=== PATIENT | female | born 1975 | race Caucasian/White ===

== ENCOUNTER 2017-07-09 19:29 | Emergency (ER) | payer MEDICAID ==
[~2017-07-09] VITALS: Ht 170.2 cm; Wt 53.5 kg
[~2017-07-09 19:29] MED LIST: BACTRIM DS 8001 TAB; CIPRO 500MG TA500 MG PO; HYDROCHLOROTH12.5 M1 PO; IBUPROFEN 600M600 MG PO; KEFLEX 500MG.500 MG PO; NEURONTIN600 M1 PO; NICOTINE PATCH;21 MG TD; PREDNISONE50 MG PO; SUBOXONE 8 MG-21 TAB SL; TESSALON PERLE100 MG PO; ZITHROMAX Z PA250 MG PO
[2017-07-09] MEDS ORDERED: BUPRENORPHINE H1 TA2 SL (19:42)
[2017-07-09 19:57] LABS: URINE BILIRUBIN - DIPSTICK NEGATIVE (NEG); URINE BLOOD 1+ (NEG)
[2017-07-09 20:32] LABS: URINE SQUAMOUS CELLS TNTC #/hpf (0-5)
--- NOTE | 2017-07-09 20:45 | Emergency Room Report ---
History of Present Illness Time Seen by 2003 Presenting Problem in Triage Pt arrived:Walked Presenting Problem:C/O RUQ PAIN FOR YEARS BUT WORSE LAST COUPLE OF WEEKS. ALSO C /O CONSTIPATION FOR A LONG TIME TO POINT SHE HAS TO MAKE HERSELF HAVE BM. UNABLE TO EAT TODAY AND AFTER EATIMNG FEELS BLOATED. 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 N Clinical Suspician of Infection? N Mental Status: 1 - Regular (Normal Baseline) Sepsis Risk:Possible Sepsis Risk Have you (or family members/close friends) recently traveled outside the [place]? N If Yes, where/when: Have you had exposure to infectious disease within the past month? N TB? Other? Specify: Source patient, RN notes reviewed, family, old records Exam Limitations no limitations Comment pt with bloated abd with rt upper abd pain -pt with no fever - no diarrhea Cardiac Chest Pain Chest pain indicative of cardiac No Timing/Duration this evening Severity moderate ALLERGIES Coded Allergies: Penicillins (Mild, 06/19/16) doxycycline (Mild, 06/19/16) levofloxacin (From LEVAQUIN) (Mild, 06/19/16) propoxyphene (Mild, 06/19/16) tetracycline (Mild, 06/19/16) meperidine (From DEMEROL) (07/09/17) Home Medications Reported Medications Gabapentin (Neurontin) 800 MG PO QID BUPRENORPHINE HCL/NALOXONE HCL (Buprenorphin-Naloxon 8-2 MG Sl) 2 TAB SL DAILY #14 History Medical History General CAD? No Angina: No PR: No Hypertension? No Hyperlipidemia? No CHF? No DVT? No PE? No COPD? No Asthma? No Anemia? No GERD? No Gastric ulcers? No GI Bleed? No Hernia? No Thyroid Problems? No Hypothyroidism? No CVA? No Seizures? No Diabetes? No Renal Insuffiency? No End Stage Renal Disease? No UTI? No Stones? No BPH? No GB Disease: No Nephritic Syndrome? No Asplenia? No Hepatitis? No Sickle Cell Disease? No Arthritis? No Migraines? Yes Cataracts? No Glaucoma? No MRSA? No HIV? No TB? No Anxiety? Yes Depression? Yes Cancer? No More? 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 Respiratory denies cough, denies shortness of breath, denies wheezing Cardiovascular denies chest pain, denies palpitations, denies syncope Gastrointestinal denies abdominal pain, denies vomiting Genitourinary denies: dysuria, frequency, hesitancy, hematuria. Musculoskeletal denies back pain, denies joint pain, denies neck pain Skin denies rash Psychiatric/Neurological denies headache, denies seizure Physical Exam Vital Signs Vital Signs Date Time Temp Pulse Resp B/P Pulse O2 O2 Flow FiO2 Ox Delivery Rate 07/09 1933 98.0 95 20 127/76 98 - WBC >12,000 or <4,000 or 10% bands? 2 or more SIRS Criteria Met? B/P:127/76 MAP:93 Creatinine >2.0? UA output<0.5ml/kg/hr for 2 hrs? Platelet count >100,000? Lactate >2.0mmol/1? INR >1.2 or PTT > than 60 sec? Evidence of Organ Dysfunction? Provider documented clinical suspician of infection? N Sepsis Criteria Count: 2 Sepsis Risk: Possible Sepsis Risk General Appearance no apparent distress Eye Exam - bilateral eye PERRL, bilateral eye EOMI Ear, Nose, Throat normal ENT inspection Neck supple Respiratory Status No: respiratory distress. Lung Sounds bilateral: lungs clear. 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 No Results/Orders Laboratory Tests 07/09/172051: Sodium 136, Potassium 3.1 L, Chloride 101, Carbon Dioxide 27, BUN 9, Creatinine 0.5 L, Estimated Creat Clear 128, Estimated GFR (MDRD) 137, Glucose 93, Calcium 8.4 L, Total Bilirubin 0.2, AST 10 L, ALT 8 L, Alkaline Phosphatase 220 H, Total Protein 7.0, Albumin 3.3 L, Globulin 3.7 H, Albumin/Globulin Ratio 0.9 L, Amylase 33, Lipase 283, WBC 5.8, RBC 4.11 L, Hgb 13.2, Hct 40.0, MCV 97.4, RDW 14.5, Plt Count 281, MPV 7.5, Gran % 41.9, Gran # 2.4, Lymphocytes % 48.2, Monocytes % 7.8, Eosinophils % 1.5, Basophils % 0.7, Lymphocytes # 2.8, Monocytes # 0.5, Eosinophils # 0.1, Basophils # 0.0, PUBS MCHC 33.0, MCH 32.1 H 07/09/171945: Opiates Screen NEGATIVE, Urine Methadone Screen NEGATIVE, Barbiturates NEGATIVE, Phencyclidine Screen NEGATIVE, Amphetamines Screen NEGATIVE, Benzodiazepines Screen NEGATIVE, Cocaine Screen NEGATIVE, Marijuana (THC) Screen NEGATIVE, Urine Color YELLOW, Urine Appearance SL CLOUDY, Urine pH 5.5, Ur Specific Grady 1.025, Urine Protein TRACE H, Urine Ketones NEGATIVE, Urine Blood 1+ H, Urine Nitrate NEGATIVE, Urine Bilirubin NEGATIVE, Urine Urobilinogen 0.2, Ur Leukocyte Esterase NEGATIVE, Urine RBC 3-5, Urine WBC OCC, Ur Squamous Epith Cells TNTC, Urine Bacteria 2+, Urine Mucus 1+, Urine Glucose NEGATIVE Current Medication Orders Sig/Flaco Start time Last Medication Dose Route Stop Time Status Admin Sodium Chloride 10 ML PRN PRN 07/09 1945 AC IV 07/10 1944 Orders Procedure Date/time Status DIET-NOTHING BY MOUTH 07/10 B Active DRUG ABUSE SCREEN (TRIAGE) 07/[address] ABD & PELVIS W/O CONTRAST 07/09 1947 Active CULTURE, URINE 07/[address] ABD/PELVIS REQ 07/09 1944 Complete IV SALINE LOCK 07/09 1944 Active URINALYSIS/COMPLETE 07/09 1944 Complete LIPASE 07/09 1944 Complete CBC WITH AUTO DIFF 07/09 1944 Complete CHEM 12 PROFILE 07/09 1944 Complete AMYLASE 07/09 1944 Complete XRAY/CT/US XRAY/CT/US CT abdomen, pelvis CT interpretation by discussed w/radiologist Time results known: 2220 CT Results normal/NAD Departure Departure Time of Disposition 2213 Disposition DC Home or Self Care(routine) Clinical Impression Primary Impression: Abdominal pain Qualifiers: Abdominal location: right upper quadrant Qualified Code: R10.11 - Right upper quadrant pain Condition STABLE Referrals STEVE BLACK APRN (Family) Patient Instructions DI for Abdominal Pain-Adult Additional Instructions see pcp for follow up Discharge Counseling Counseled pt/family regarding diagnosis, test results, medications/RX, follow up needs ED Critical Care Critical Care No at 2220
[2017-07-09 20:56] LABS: HEMOGLOBIN 13.2 g/dL (12.2-16.2); LYMPH # 2.8 K/mm3 (0.7-4.5); LYMPH % 48.2 % (10-50.0)
[2017-07-09 21:07] LABS: AMPHETAMINES/METAMPHETAMINES NEGATIVE ng/mL (<1000)
[2017-07-09 22:27] VITALS: BP 109/77
--- NOTE | 2017-07-10 09:17 | RADIOLOGY REPORT PS360 ---
CT ABD PELVIS W/O CONTRAST CLINICAL INDICATION: RUQ ABD PAIN ORDERING PHYSICIAN: Jim Maldonado MD PATIENT AGE: 41 years COMPARISON: 10/08/2013 TECHNIQUE: Axial images obtained with sagittal and coronal reformats. PROCEDURE: Oral Contrast: None IV Contrast: None . FINDINGS: Lower thorax: No acute finding ABDOMEN: Liver: No masses or biliary dilatation. Gallbladder: Nondistended. No radio opaque stones. Pancreas: No masses or peripancreatic fluid collections. Spleen: Unremarkable. Adrenals: Unremarkable Kidneys/ureters: No masses. No renal calculi. No hydronephrosis. No perinephric fluid collections. No ureteral dilatation or obvious ureteral calculi. Stomach bowel: The bowel gas pattern is nonspecific with scattered nondistended fluid-filled loops of small bowel Appendix: No evidence of appendicitis. PELVIS: Reproductive: Unremarkable Bladder: Nondistended. No obvious stones or masses. ABDOMEN & PELVIS: Peritoneum: No abnormal fluid collections. No obvious inflammatory changes. No free air. Lymph nodes: No enlarged lymph nodes apparent. Vasculature: No evidence of abdominal aortic aneurysm. No retroperitoneal hemorrhage evident. Bones: No acute fracture IMPRESSION: No acute intra-abdominal or pelvic pathology. Nonspecific bowel gas pattern with some nonspecific fluid-filled loops of small bowel in the pelvis. Enteritis is a consideration. Please correlate clinically
--- OUTSIDE RECORDS SUMMARY | 2017-07-10 22:10 | External Medical Summary Rpt | CCD ---
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 Name Role Phone AHMED ADN, AHMED ADN Unavailable Unavailable AHMED ADN, AHMED ADN Unavailable Unavailable BEINEKE LUBNA, BEINEKE Unavailable Unavailable LUBNA ZUNIGA ALL, ZUNIGA ALL Unavailable Unavailable SANCHEZ ROSA, SANCHEZ Unavailable Unavailable [facility] Unavailable Unavailable CLINIC PLL[facility], [facility] KEON RYA, Unavailable Unavailable KE[facility] RYA KEON RYA, Unavailable Unavailable KE[facility] R[facility] ZAFAR HOLLIS, Unavailable Unavailable ZAFAR HOLLIS FRYMAN EUG, FRYMAN Unavailable Unavailable EUG ZELDA DIA, ZELDA Unavailable Unavailable DIA [facility] Unavailable Unavailable INC, [facility], Unavailable Unavailable [facility] WAYNE, WAYNE Unavailable Unavailable WAYNE NAN, WAYNE Unavailable Unavailable NAN NIKITA TAU, NIKITA Unavailable Unavailable TAU [facility] Unavailable Unavailable [facility], [facility] Unavailable Unavailable [facility], [facility] VARMA JM, VARMA Unavailable Unavailable JM VARMA JM, VARMA Unavailable Unavailable JM PATRICE JUNIOR, PATRICE Unavailable Unavailable JUNIOR PATRICEDANIELITO PACHECO, PATRICE Unavailable Unavailable JUNIOR Jim Maldonado MD, Unavailable Unavailable Jim Maldonado MD [facility] Unavailable [facility]available [facility], Unavailable [facility]available [facility] Unavailable Unavailable URGENT TREAT, [facility], Unavailable Unavailable PLLC, [facility], Unavailable Unavailable [facility], Unavailable Unavailable [facility] SOKAN BAB, SOKAN BAB Unavailable Unavailable [facility] Unavailable Unavailable EQUIPME, [facility] Unavailable Unavailable EQUIPME, [facility] JAREDSAMARA CALVO, Unavailable Unavailable JAREDSAMARA CALVO [facility] Unavailable Unavailable [facility], [facility], [facility]available [facility], Unavailable Unavailable [facility] Purpose Continuity of Care Document - 05-09-2012 through 2016 Problems Code Diagnosis DOS Provider Status E018 OTH 04-19-2017 [facility] C REL SOLUTIONS THYROID D/O IN & ALLIED CONDS E538 DEFICIENCY 04-19-2017 [facility] OF OTHER HEALTH SPECIFIED B SOLUTIONS GROUP IN VITAMINS G2581 RESTLESS 04-19-2017 [facility] SYNDROME SOLUTIONS IN 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 E559 VITAMIN D 03-24-2017 [facility] DEFICIENCY HEALTH UNSPECIFIED SOLUTIONS IN K219 GASTRO-ESOP 03-24-2017 [facility] H REFLUX HEALTH DISEASE SOLUTIONS WITHOUT IN ESOPHAGITIS 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 R42 DIZZINESS 03-24-2017 [facility] AND HEALTH GIDDINESS SOLUTIONS IN H9202 OTALGIA 03-22-2017 [facility] LEFT EAR HEALTH SOLUTIONS IN K5900 CONSTIPATIO 11-23-2016 [facility] N HEALTH UNSPECIFIED SOLUTIONS IN J189 PNEUMONIA 11-14-2016 [facility]ICAL EQUIPME R0902 HYPOXEMIA 11-14-2016 [facility] R600 LOCALIZED 06-19-2016 [facility] R609 EDEMA 06-19-2016 [facility] UNSPECIFIED PHYSICIANS, [facility] Z720 TOBACCO USE 06-19-2016 [facility] H6502 ACUTE 04-07-2016 VARMA JM SEROUS OTITIS MEDIA LEFT EAR H7012 CHRONIC 04-07-2016 VARMA JM MASTOIDITIS LEFT EAR K5901 SLOW 10-10-2015 [facility] CONST[facility]IO URGENT N TREAT G73430 PAIN IN 10-10-2015 [facility] RIGHT LEG [facility] URGENT [facility]RE[facility] K00318 PAIN IN 10-10-2015 [facility] LEFT LEG [facility] URGENT TREAT [id number] EPIGASTRIC 10-10-2015 [facility] ABDOMINAL [facility] TENDERNESS URGENT TREAT R110 NAUSEA 10-10-2015 [facility] M6009 INFECTIVE 10-03-2015 [facility] MYOSITIS [facility] MULTIPLE URGENT SITES TREAT 486 PNEUMONIA, 06-14-2015 [facility] 84426 ASTHMA, 06-14-2015 [facility] UNSPECIFIED STATUS 04518 HYPOXEMIA 06-14-2015 [facility] MEDICAL EQUIPME V5869 LONG-TERM 06-13-2015 [facility] (CURRENT) PHYSICIANS USE OF GROUP OTHER MEDICATIONS 7856 ENLARGEMENT 06-12-2015 [facility] LYMPH MEDICAL NODES [facility] 22265 SHORTNESS 06-11-2015 [facility] OF BREATH [facility]ICAL [facility] 7862 COUGH 06-11-2015 [facility] 67315 WHEEZING 06-09-2015 [facility] 52180 OTHER 06-09-2015 [facility] NONSPECIFIC MEDICAL ABNORMAL [facility] ASS FINDING OF LUNG FIELD 2724 OTHER AND 06-05-2015 [facility] UNSPECIFIED [facility] URGENT HYPERLIPIDE TREAT SIMBA 4610 ACUTE 06-05-2015 [facility] MAXILLARY [facility] SINUSITIS URGENT TREAT 12822 OTHER 06-05-2015 [facility] MALAISE AND [facility] FATIGUE URGENT TREAT 2689 UNSPECIFIED 02-21-2015 [facility] VITAMIN D FAMILY DEFICIENCY CLINIC [facility] 15338 RESTLESS 02-21-2015 [facility] [place] SYNDROME URGENT TREAT 63190 ACUTE 02-21-2015 [facility] SEROUS FAMILY OTITIS CLINIC [facility] MEDIA V700 ROUTINE 02-21-2015 [facility] GENERAL [facility] EXAM@HEALTH CARE FACL V770 SCREENING 02-21-2015 [facility] FOR THYROID FAMILY DISORDER CLINIC [facility] V7791 SCREENING 02-21-2015 [facility] FOR LIPOID FAMILY DISORDERS CLINIC [facility] V780 SCREENING 02-21-2015 [facility] FOR IRON FAMILY DEFICIENCY CLINIC [facility] ANEMIA 77679 UNSPECIFIED 12-17-2014 [facility] PACHECO ACUTE NONSUPPURAT LISANDRA OTITIS MEDIA 462 ACUTE 12-17-2014 [facility] PACHECO PHARYNGITIS 7905 OTHER 10-24-2014 [facility] ABNORMAL SERUM ENZYME LEVELS 00522 MIGRAINE 04-23-2014 PATRICE PACHECO UNSP W/O INTRACT W/O STATUS MIGRAINOSUS 7820 DISTURBANCE 03-13-2014 PATRICE PACHECO OF SKIN SENSATION 57605 OTHER 12-14-2013 PATR[facility] PACHECO CHRONIC PAIN 276.8 276.8 10-08-2013 [facility] 789.01 789.01 10-08-2013 [place] ABDOMINAL [facility] PAIN, RIGHT Hospital UPPER QUADRANT V14.0 V14.0 10-08-2013 [facility] HX-PENICILL [facility] IN ALLERGY Hospital V14.8 V14.8 10-08-2013 [facility] ALLERGY NEC Hospital 6827 CELLULITIS 03-24-2013 [facility] EX[facility] TOES 62750 OTHER 03-24-2013 [facility] V4589 OTHER 03-24-2013 [facility] STATUS OTHER 60115 MIGRAINE 03-02-2013 PATRICE PACHECO W/AURA W/O INTRACT W/O STATUS MIGRNOSUS 17746 UNSPECIFIED 02-07-2013 PATRICE PACHECO OTALGIA 81992 MIGRAINE 01-11-2013 PATRICE PACHECO UNSP W/O INTRACTBL W/STATUS MIGRAINOSUS 21299 NAUSEA 01-11-2013 PATR[facility] PACHECO ALONE 7295 PAIN IN 11-15-2012 PATRICE PACHECO SOFT TISSUES OF LIMB 03411 OTHER 10-26-2012 [facility] LUNG NOT ASSOCIAT ELSEWHERE CLASSIFIED 77890 MIGRAINE 10-20-2012 PATRICE PACHECO W/O AURA W/O INTRACT W/O STAT MIGRNOSUS 95212 REGULAR 09-26-2012 [facility] 60286 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-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 28360 CERTAIN 06-23-2012 PATRICE PACHECO ADVERSE EFFECTS [facility] OTHER 6250 DYSPAREUNIA 05-17-2012 AHMED ADN 6253 DYSMENORRHE 05-17-2012 AHMED ADN A 20354 ABDOMINAL 05-17-2012 AHMED ADN PAIN, UNSPECIFIED SITE Allergies, Adverse Reactions, Alerts Type Drug Allergy Adverse Reaction to Substance Substance Reaction Severity Penicillin Unknown Unknown Meperidine Unknown Unknown Tetracycline Unknown Unknown Propoxyphene Unknown Unknown Acetaminophen Unknown Unknown Doxycycline Unknown Unknown Medications Na ND Rx Da Fi Fi Am Da Di Ph RX Ph St me C No te ll ll ou ys ag ar # ys at rm s nt no ma ic us Or Da si cy ia de te s n re d BU 00 09 10 14 7 00 CA Ac TN 05 -0 -1 .0 00 RL ti EN 40 7- 3- 00 00 IS ve OR 18 20 20 78 LE PH 91 17 [address] -N UG AL S OX ON 8- 2 MG SL PO 00 08 09 30 30 00 BA Ac TA 78 -2 -2 .0 00 TH ti SS 15 8- 9- 00 06 ve IU 72 20 20 31 HO M 01 17 17 99 ME CL 0 25 TO WN ER PH 20 AR MA ME CY Q , TA IN BL C. ET GA 69 08 09 12 30 00 CA Ac BA 09 -2 -2 0. 00 RL ti PE 70 2- 2- 00 00 IS ve NT 81 20 20 0 77 LE IN 11 17 [address] 80 UG 0 S MG TA BL ET LE 00 08 09 30 30 00 CA Ac VO 37 -2 -2 .0 00 RL ti TH 81 2- 2- 00 00 IS ve YR 80 20 20 77 LE OX 01 17 [address] Wise UG 25 S MC G TA BL ET LE 00 08 30 30 00 CA Ac VO 37 -2 -2 .0 00 RL ti TH 81 4- 5- 00 00 IS ve YR 80 20 20 77 LE OX 01 17 17 [address] Wise UG 25 S MC G TA BL ET GA 69 07 08 12 30 00 CA Ac BA 09 -2 -2 0. 00 RL ti PE 70 4- 5- 00 00 IS ve NT 81 20 20 0 77 LE IN 11 17 17 82 2 49 80 UG 0 S MG TA BL ET OM 60 06 07 30 30 00 CA Ac EP 50 -2 -2 .0 00 RL ti RA 50 6- 8- 00 00 IS ve ZO 06 20 20 77 LE LE 50 17 [address] MCKEON S 20 MG CA PS UL E ON 65 06 07 20 5 00 CA Ac DA 86 -2 -2 .0 00 RL ti NS 20 6- 8- 00 00 IS ve ET 18 20 20 77 LE RO 73 17 [address] HALL UG L S 4 MG TA BL ET GA 69 06 07 12 30 00 CA Ac BA 09 -2 -2 0. 00 RL ti PE 70 6- 8- 00 00 IS ve NT 81 20 20 0 77 LE IN 11 17 17 69 2 95 80 UG 0 S MG TA BL ET TN 59 06 07 55 10 00 CA Ac ED 74 -2 -2 .0 00 RL ti NI 60 6- 8- 00 00 IS ve SO 17 20 20 77 LE NE 21 17 17 69 5 0 96 UG MG S TA BL ET GA 68 05 06 12 30 00 CA Ac BA 46 -2 -3 0. 00 RL ti PE 20 9- 0- 00 00 IS ve NT 12 20 20 0 76 LE IN 70 17 [address] 80 UG 0 S MG TA BL ET GA 68 05 06 12 30 00 CA Ac BA 46 -0 -0 0. 00 RL ti PE 20 1- 2- 00 00 IS ve NT 12 20 20 0 76 LE IN 70 17 [address] 80 UG 0 S MG TA BL ET GA 68 04 05 12 30 00 CA Ac BA 46 -0 -0 0. 00 RL ti PE 20 3- 5- 00 00 IS ve NT 12 20 20 0 76 LE IN 70 17 [address] 80 UG 0 S MG TA BL ET TN 00 03 04 55 10 00 CA Ac ED 05 -0 -1 .0 00 RL ti NI 44 9- 4- 00 00 IS ve SO 72 20 20 77 LE NE 83 17 17 [address] UG MG S TA BL ET GA 02 03 12 30 00 CA Ac BA 46 -2 -3 0. 00 RL ti PE 20 8- 1- 00 00 IS ve NT 12 20 20 0 77 LE IN 60 17 [address] 60 UG 0 S MG TA BL ET PO 51 02 03 52 30 00 CA Ac LY 99 -2 -3 7. 00 RL ti ET 10 8- 1- 00 00 IS ve HY 45 20 20 0 77 LE LE 75 17 [address] UG GL S YC OL 33 50 PO WD GA 68 02 03 12 30 00 CA Ac BA 46 -1 -2 0. 00 RL ti PE 20 7- 4- 00 00 IS ve NT 12 20 20 0 76 LE IN 70 17 [address] 80 UG 0 S MG TA BL ET GA 01 02 12 30 00 CA Ac BA 46 -2 -2 0. 00 RL ti PE 20 0- 4- 00 00 IS ve NT 12 20 20 0 76 LE IN 70 17 [address] 80 UG 0 S MG TA BL ET GA 68 12 01 12 30 00 CA Ac BA 46 -2 -2 0. 00 RL ti PE 20 3- 7- 00 00 IS ve NT 12 20 20 0 76 LE IN 70 16 [address] 80 UG 0 S MG TA BL ET AM 65 12 01 20 10 00 CA Ac OX 86 -2 -2 .0 00 RL ti IC 20 1- 0- 00 00 IS ve IL 01 20 20 76 LE LI 50 16 17 [address] 87 UG 5 S MG TA BL ET TN 00 12 01 11 6 00 CA Ac OM 60 -2 -2 8. 00 RL ti ET 31 1- 0- 00 00 IS ve CRUM 58 20 20 0 76 LE ZI 65 16 [address] -D UG M S SY RU P Sa 63 01 0 No li 80 -1 ne 70 2- Lo 10 20 ng Fl 07 14 er us 5 h Ac 10 ti ML ve Sy ri ng e ON 00 01 0 No DA 64 -1 NS 16 2- Lo ET 08 20 ng RO 02 14 er N 5 HC Ac L ti 4 ve MG /2 ML AL BU 55 01 0 No TO 39 -1 RP 00 2- Lo CRUM 18 20 ng NO 40 14 er L 1 2 Ac MG ti /M ve L AL Po 00 01 0 No ta 24 -1 ss 50 2- Lo iu 04 20 ng m 10 14 er Ch 1 lo Ac ri ti de ve 10 ME Q TA BL E KE 00 01 0 No TO 40 -1 RO 93 2- Lo LA 79 20 ng C 50 14 er 30 1 Ac MG ti /M ve L AL Vital Signs 10-08-2013 20:30 Name Value Interpretat Reference Comment ion Range BP 70 mm[Hg] Diastolic BP Systolic 120 mm[Hg] Heart 77 /min Rate/Pulse O2% 98 % Respiratory 20 /min Rate 10-08-2013 18:56 Name Value Interpretat Reference Comment ion Range BP 79 mm[Hg] Diastolic BP Systolic 139 mm[Hg] Heart 80 /min Rate/Pulse O2% 100 % Respiratory 20 /min Rate Results Labs Lab Lab Date Result Refere Interp Status Commen Order Detail nces retati t Range on COMPREHENSIVE METABOLIC PANEL (10-08-2013 18:50) Glucose 137 74-106 complet 014 mg/dL ed Bld-mCn 18:50 c BUN 10 7-18 complet Bld-mCn 014 mg/dL ed c 18:50 Creat 0.7 0.6-1.0 complet SerPl-m 014 mg/dL ed Cnc 18:50 Creat 101 50-200 complet Cl 014 ML/MIN ed predict 18:50 ed SerPl C-G-vRa te GFR/BSA 95 59- complet .pred 014 ML/MIN ed SerPl 18:50 Schwart z-vRate Sodium 138 136-145 complet SerPl-s 014 mmoL/L ed Cnc 18:50 Potassi 2.9 3.5-5.1 Low complet um 014 mmoL/L alert ed SerPl-s 18:50 Cnc Chlorid 98 98-107 complet e 014 mmoL/L ed SerPl-s 18:50 Cnc CO2 31 21.0-32 complet SerPl-s 014 mmoL/L .0 ed Cnc 18:50 Calcium 9.0 8.5-10. complet 014 mg/dL 1 ed SerPl-m 18:50 Cnc Prot 8.2 6.4-8.2 complet SerPl-m 014 gm/dL ed Cnc 18:50 Albumin 3.4 3.4-5.0 complet 014 gm/dL ed SerPl-m 18:50 Cnc Globuli 4.8 1.3-3.2 complet n 014 gm/dL ed Ser-mCn 18:50 c Albumin 0.7 UNK 1.1-1.8 complet /Glob 014 ed SerPl-m 18:50 Rto Bilirub 0.2 0.2-1.0 complet 014 mg/dL ed SerPl-m 18:50 Cnc AST 15 U/L 15-37 complet SerPl-c 014 ed Cnc 18:50 ALT 45 U/L 30-65 complet SerPl-c 014 ed Cnc 18:50 ALP 238 U/L 50-136 complet SerPl-c 014 ed Cnc 18:50 Amylase SerPl-cCnc (10-08-2013 18:50) Amylase 48 U/L 25-115 complet 014 ed SerPl-c 18:50 Cnc LIPASE (10-08-2013 18:50) LIPASE 138 U/L 73-393 complet 014 ed 18:50 CBC with AUTO DIFF (10-08-2013 18:50) WBC # 10-08- 17.7 4.8-10. complet Bld 014 K/MM3 8 ed Auto 18:50 RBC # 10-08- 4.98 4.2-5.4 complet Bld 014 M/mm3 ed Auto 18:50 Hgb 2 14.4 12.2-16 complet Bld-mCn 014 g/dL .2 ed c 18:50 Hct Fr 43.5 % 37.0-47 complet Bld 014 .0 ed 18:50 MCV RBC 87.3 fl 82.2-97 complet 014 .8 ed 18:50 MCH RBC 28.9 pg 27-31.2 complet Qn 014 ed Auto 18:50 MEAN 33.1 31.8-35 complet CORPUSC 014 g/dl .4 ed ULAR 18:50 HGB CONC RDW RBC 14.2 % 11.5-17 complet Auto 014 .5 ed 18:50 Platele 396 142-424 complet t Bld 014 K/mm3 ed Ql 18:50 Manual MEAN 7.4 fl 7.4-10. complet PLATELE 014 4 ed T 18:50 VOLUME Granulo 2 86.9 % 37.0-80 complet cytes 014 .0 ed Fr Bld 18:50 Auto LYMPH % 10-08-2 10.2 % 10-50.0 complet 014 ed 18:50 Monocyt 10-08-2 2.0 % 1.7-9.3 complet es Fr 014 ed Bld 18:50 Auto Eosinop 10-08-2 0.8 % 0.1-12. complet hil Fr 014 0 ed Bld 18:50 Auto Basophi 10-08-2 0.2 % 0.1-2.0 complet ls Fr 014 ed Bld 18:50 Auto Granulo 10-08-2 15.4 1.8-7.8 complet cytes # 014 K/mm3 ed Bld 18:50 Auto Lymphoc 12-2 1.8 0.7-4.5 complet ytes Fr 014 K/mm3 ed Bld 18:50 Auto Monocyt -12-2 0.4 0.1-1.0 complet es # 014 K/mm3 ed Bld 18:50 Auto Eosinop 10-08-2 0.1 0.0-0.4 complet hil # 014 K/mm3 ed Bld 18:50 Auto Basophi 0.0 0-0.2 complet ls # 014 K/MM3 ed Bld 18:50 Auto B-HCG Ur Ql (10-08-2013 18:27) B-HCG NEGATIV NEG complet Ur Ql 014 E ed 18:27 URINALYSIS/COMPLETE (10-08-2013 18:27) URINE YELLOW YELLOW complet COLOR 014 ed 18:27 URINE CLOUDY CLEAR complet APPEARA 014 ed NCE 18:27 URINE NEGATIV NEG complet GLUCOSE 014 E ed - 18:27 DIPSTIC K URINE NEGATIV NEG complet BILIRUB 014 E ed IN - 18:27 DIPSTIC K URINE NEGATIV NEG complet KETONE 014 E mg/dL ed 18:27 URINE 1.025 1.005-1 complet SPECIFI 014 UNK .030 ed C 18:27 GRAVITY URINE 2+ NEG complet BLOOD 014 ed 18:27 URINE 6.0 UNK 5.0-8.5 complet PH 014 ed 18:27 URINE TRACE NEG complet PROTEIN 014 mg/dL ed - 18:27 DIPSTIC K URINE 1.0 NEG complet UROBILI 014 E.U./dL ed NOGEN - 18:27 DIPSTIC K URINE NEGATIV NEG complet NITRATE 014 E ed - 18:27 DIPSTIC K URINE TRACE NEG complet LEUK 014 ed ESTERAS 18:27 E URINE 10-20 0 complet RBC 014 rbc/hpf ed 18:27 URINE 10-20 O complet WBC 014 wbc/hpf ed 18:27 URINE 20-50 0-5 complet SQUAMOU 014 #/hpf ed S CELLS 18:27 URINE 2+ OCC complet MUCUS 014 ed 18:27 Procedures Procedure DOS Code Location Performer Comment GENERAL 97420 [facility] HOLD[facility] LIPID 51158 [facility] HOLDINGS COLLECTIO [address] [facility] [address] N VENOUS 7 HEALTH BLOOD [place] [address] LAB [facility] FOLIC 7 [facility] ACID HOLDINGS HOLDINGS SERUM CYANOCOBA 72795 LAB [facility] YANG 7 [facility] VITAMIN HOLDINGS HOLDINGS B-12 O2 CONC 1 E1390 [facility] [place] 7 HOME HOME 85%/>02 MEDICAL MEDICAL CONC AT EQUIPME EQUIPME PRSC FLW RATE PRTBLE E0431 [facility] GASEOUS 7 HOME HOME O2 SYS MEDICAL MEDICAL RENT; EQUIPME EQUIPME FLWMTR HUMIDFR&M ASK O2 CONC 1 E1390 [facility] [place] 7 HOME HOME 85%/>02 MEDICAL MEDICAL CONC AT EQUIPME EQUIPME PRSC FLW RATE PRTBLE E0431 [facility] GASEOUS 7 HOME HOME O2 SYS MEDICAL MEDICAL RENT; EQUIPME EQUIPME FLWMTR HUMIDFR&M ASK O2 CONC 1 E1390 [facility] [place] 6 HOME HOME 85%/>02 MEDICAL MEDICAL CONC AT EQUIPME EQUIPME PRSC FLW RATE PRTBLE E0431 [facility] GASEOUS 6 HOME HOME O2 SYS MEDICAL MEDICAL RENT; EQUIPME EQUIPME FLWMTR HUMIDFR&M ASK O2 CONC 1 E1390 [facility] [place] 6 HOME HOME 85%/>02 MEDICAL MEDICAL CONC AT EQUIPME EQUIPME PRSC FLW RATE PRTBLE E0431 [facility] GASEOUS 6 HOME HOME O2 SYS MEDICAL MEDICAL RENT; EQUIPME EQUIPME FLWMTR HUMIDFR&M ASK PRTBLE E0431 [facility] GASEOUS 6 HOME HOME O2 SYS MEDICAL MEDICAL RENT; EQUIPME EQUIPME FLWMTR HUMIDFR&M ASK O2 CONC 1 E1390 [facility] [place] 6 HOME HOME 85%/>02 MEDICAL MEDICAL CONC AT EQUIP[place] [address] [facility] THYROXINE 6 [facility] TOTAL INC INC URNLS DIP 84578 [facility]ES 6 [facility] STICK/TAB INC INC LET REAGENT AUTO MICROSCOP Y BLOOD 55891 [facility] COUNT 6 [facility] COMPLETE INC INC AUTO&[place] [address] [facility] THYROID 6 [facility]OS[facility] STIMULATI INC INC NG HORMONE TSH COMPREHEN 39083 [facility] SIVE 6 [facility] METABOLIC INC INC PANEL PRTBLE E0431 [facility] GASEOUS 6 HOME HOME O2 SYS MEDICAL MEDICAL RENT; EQUIPME EQUIPME FLWMTR HUMIDFR&M ASK O2 CONC 1 E1390 [facility] [place] 6 HOME HOME 85%/>02 MEDICAL MEDICAL CONC AT EQUIPME EQUIPME PRSC FLW RATE O2 CONC 1 E1390 [facility] [place] 6 HOME HOME 85%/>02 MEDICAL MEDICAL CONC AT EQUIPME EQUIPME PRSC FLW RATE PRTBLE E0431 [facility] GASEOUS 6 HOME HOME O2 SYS MEDICAL MEDICAL RENT; EQUIPME EQUIPME FLWMTR HUMIDFR&M ASK PRTBLE E0431 [facility] MCCARTYRELL GASEOUS 6 HOME HOME O2 SYS MEDICAL MEDICAL RENT; EQUIPME EQUIPME FLWMTR HUMIDFR&M ASK O2 CONC 1 E1390 [facility] [place] 6 HOME HOME 85%/>02 MEDICAL MEDICAL CONC AT EQUIPME EQUIPME PRSC FLW RATE PRTBLE E0431 [facility] GASEOUS 6 HOME HOME O2 SYS MEDICAL MEDICAL RENT; EQUIPME EQUIPME FLWMTR HUMIDFR&M ASK O2 CONC 1 E1390 [facility] [place] 6 HOME HOME 85%/>02 MEDICAL MEDICAL CONC AT EQUIPME EQUIPME PRSC FLW RATE O2 CONC 1 E1390 [facility] [place] 6 HOME HOME 85%/>02 MEDICAL MEDICAL CONC AT EQUIPME EQUIPME PRSC FLW RATE PRTBLE E0431 [facility] GASEOUS 6 HOME HOME O2 SYS MEDICAL MEDICAL RENT; EQUIPME EQUIPME FLWMTR HUMIDFR&M ASK PRTBLE E0431 [facility] GASEOUS 6 HOME HOME O2 SYS MEDICAL MEDICAL RENT; EQUIPME EQUIPME FLWMTR HUMIDFR&M ASK O2 CONC 1 E1390 [facility] [place] 6 HOME HOME 85%/>02 MEDICAL MEDICAL CONC AT EQUIPME EQUIPME PRSC FLW RATE PRTBLE E0431 [facility] GASEOUS 6 HOME HOME O2 SYS MEDICAL MEDICAL RENT; EQUIPME EQUIPME FLWMTR HUMIDFR&M ASK O2 CONC 1 E1390 [facility] [place] 6 HOME HOME 85%/>02 MEDICAL MEDICAL CONC AT EQUIPME EQUIPME PRSC FLW RATE O2 CONC 1 E1390 [facility] [place] 6 HOME HOME 85%/>02 MEDICAL MEDICAL CONC AT EQUIPME EQUIPME PRSC FLW RATE PRTBLE E0431 [facility] GASEOUS 6 HOME HOME O2 SYS MEDICAL MEDICAL RENT; EQUIPME EQUIPME FLWMTR HUMIDFR&M ASK O2 CONC 1 E1390 [facility] [place] 6 HOME HOME 85%/>02 MEDICAL MEDICAL CONC AT EQUIPME EQUIPME PRSC FLW RATE PRTBLE E0431 [facility] GASEOUS 6 HOME HOME O2 SYS MEDICAL MEDICAL RENT; EQUIPME EQUIPME FLWMTR HUMIDFR&M ASK PRTBLE E0431 [facility] GASEOUS 5 HOME HOME O2 SYS MEDICAL MEDICAL RENT; EQUIPME EQUIPME FLWMTR HUMIDFR&M ASK O2 CONC 1 E1390 [facility] [place] 5 HOME HOME 85%/>02 MEDICAL MEDICAL CONC AT EQUIPME EQUIPME PRSC FLW RATE O2 CONC 1 E1390 [facility] [place] 5 HOME HOME 85%/>02 MEDICAL MEDICAL CONC AT EQUIPME EQUIPME PRSC FLW RATE PRTBLE E0431 [facility] GASEOUS 5 HOME HOME O2 SYS MEDICAL MEDICAL RENT; EQUIPME EQUIPME FLWMTR HUMIDFR&M ASK PRTBLE E0431 [facility] GASEOUS 5 HOME HOME O2 SYS MEDICAL MEDICAL RENT; EQUIPME EQUIPME FLWMTR HUMIDFR&M ASK O2 CONC 1 E1390 [facility] [place] 5 HOME HOME 85%/>02 MEDICAL MEDICAL CONC AT EQUIPME EQUIPME PRSC FLW RATE O2 CONC 1 E1390 [facility] [place] 5 HOME HOME 85%/>02 MEDICAL MEDICAL CONC AT EQUIPME EQUIPME PRSC FLW RATE PRTBLE E0431 [facility] GASEOUS 5 HOME HOME O2 SYS MEDICAL MEDICAL RENT; EQUIPME EQUIPME FLWMTR HUMIDFR&M ASK ADMN SET [id number] YOUR YOUR SM VOL 5 PHARMACY PHARMACY [facility] PNEUMAT NEBULIZR DISPBL NEBULIZER E0570 [facility] WITH 5 HOME HOME [facility] R [facility] 84305 [facility] 5 PHYSICIAN DIA DAY S GROUP MANAGEMEN T 30 MIN/< RADIOLOGI 46250 [facility] ALL C EXAM 5 MEDICAL CHEST 2 IMAGING VIEWS ASS FRONTAL&L ATERAL CT THORAX 27876 [facility] ALL 5 MEDICAL W/CONTRAS IMAGING T ASS MATERIAL SBSQ [address] 15 MINUTES RADIOLOGI 85326 [facility] C EXAM 5 MEDICAL LUBNA CHEST 2 IMAGING VIEWS ASS FRONTAL&L ATERAL SBSQ 40178 [facility] 5 PHYSICIAN DIA CARE/DAY S GROUP 15 MINUTES RADIOLOGI 69862 [facility] C EXAM 5 MEDICAL HOLLIS CHEST 2 IMAGING VIEWS ASS FRONTAL&L ATERAL INITIAL [address] 50 MINUTES COLLECTIO 40171 [facility] N VENOUS 5 DIAGNOSTI DIAGNOSTI BLOOD CS CS VENIPUNCT URE 25 01477 [facility] HYDROXY 5 DIAGNOSTI DIAGNOSTI INCLUDES CS CS FRACTIONS IF PERFORMED RADIOLOGI 57186 [facility] C EXAM 3 ROSA CHEST 2 RADIOLOGY VIEWS ASSOCIAT FRONTAL&L ATERAL DETERMINA 09911 [facility] TION 2 RYA RYA REFRACTIV E STATE OPHTH 25444 [facility] MEDICAL 2 RYA RYA XM&EVAL COMPRE NEW PT 1/> VST Encounters Encounter Start End Date Code Location Performer Type Date OFFICE 08957 [facility] 7 7 [facility] T VISIT SOLUTIONS 15 IN MINUTES OFFICE 58681 [facility] 7 7 [facility] T VISIT SOLUT[facility] 25 IN MINUTES OFFICE 18106 [facility] 7 7 [facility] T VISIT SOLUTIONS 25 IN MINUTES OFFICE 94213 [facility] 7 7 [facility] T VISIT SOLUTIONS 15 IN MINUTES [facility]OSP[facility] - [facility] 6 [facility] T EMERGENCY 09748 ELAINE MALDONADO 6 6 PHYSICIAN DIA DEPARTMEN S, PLLC T VISIT HIGH/URGE NT SEVERITY EMERGENCY 42970 [facility] 6 6 [facility] T VISIT LOW/MODER SEVERITY OFFICE 47226 VARMA VARMA OUTPATIEN 6 6 [facility] T NEW 45 MINUTES OFFICE 63306 [facility] OUTPATIEN 6 6 [facility] T VISIT URGENT 25 TREAT MINUTES OFFICE 76349 [facility]ACK OUTPATIEN 6 6 [facility] T VISIT URGENT 15 TREAT MINUTES OFFICE 16166 [facility]ACK OUTPATIEN 5 5 [facility] T VISIT URGENT 15 TREAT MINUTES EMERGENCY 89363 ELAINE BROWER DEPT 5 5 PHYSICIAN U LUBNA VISIT S, PLLC HIGH SEVERITY& THREAT FUNCJ OFFICE 74339 [facility] BLACK OUTPATIEN 5 5 [facility] T VISIT URGENT 25 TREAT MINUTES OFFICE 63100 [facility] BLACK OUTPATIEN 5 5 [facility] T NEW 20 URGENT MINUTES TREAT OFFICE 15888 [facility] NIKITA OUTPATIEN 5 5 [facility] T VISIT CLINIC 15 PLLC MINUTES PERIODIC 27975 COMM[facility] NIKITA PREVENTIV 5 5 FAMILY TAU E MED EST CLINIC PATIENT PLLC 18-39 YRS OFFICE 65073 PATRICE PATRICE OUTPATIEN 5 5 JUNIOR JUNIOR T VISIT 25 MINUTES OFFICE 51434 PATRICE PATRICE OUTPATIEN 4 4 JUNIOR JUNIOR T VISIT 15 MINUTES OFFICE 47501 PATRICE PATRICE OUTPATIEN 4 4 JUNIOR JUNIOR T VISIT 15 MINUTES OFFICE 23288 PATRICE PATRICE OUTPATIEN 4 4 JUNIOR JUNIOR T VISIT 25 MINUTES Emergency MELISSA Maldonado MD (ER) 4 18:31 4 20:31 [facility] EMERGENCY 50390 NETTIE TORREZ 3 3 CO [facility] T VISIT MODERATE SEVERITY OFFICE 79181 PATRICE PATRICE OUTPATIEN 3 3 JUNIOR JUNIOR T VISIT 15 MINUTES OFFICE 13301 PATRICE PATRICE OUTPATIEN 3 3 JUNIOR JUNIOR T VISIT 15 MINUTES OFFICE 79985 PATRICE PATRICE OUTPATIEN 3 3 JUNIOR JUNIOR T VISIT 15 MINUTES OFFICE 74204 PATRICE PATRICE OUTPATIEN 3 3 JUNIOR JUNIOR T VISIT 15 MINUTES OFFICE 76768 PATRICE PATRICE OUTPATIEN 3 3 JUNIOR JUNIOR T VISIT 25 MINUTES OFFICE 36481 PATRICE PATRICE OUTPATIEN 3 3 JUNIOR JUNIOR T VISIT 15 MINUTES OFFICE 52893 PATRICE PATRICE OUTPATIEN 3 3 JUNIOR JUNIOR T VISIT 15 MINUTES OFFICE 49201 PATRICE PATRICE OUTPATIEN 2 2 JUNIOR JUNIOR T VISIT 15 MINUTES OFFICE 17266 PATRICE PATRICE OUTPATIEN 2 2 JUNIOR JUNIOR T VISIT 15 MINUTES OFFICE 26918 PATRICE PATRICE OUTPATIEN 2 2 JUNIOR JUNIOR T VISIT 25 MINUTES OFFICE 91714 PATRICE PATRICE OUTPATIEN 2 2 JUNIOR JUNIOR T VISIT 15 MINUTES OFFICE 21677 PATRICE PATRICE OUTPATIEN 2 2 JUNIOR JUNIOR T VISIT 15 MINUTES OFFICE 81787 AHSTEPHY ALARCON AHMED ADN OUTPATIEN 2 2 T VISIT 15 MINUTES OFFICE 11928 AHMED ADN AHMED ADN OUTPATIEN 2 2 T VISIT 25 MINUTES
--- OUTSIDE RECORDS SUMMARY | 2017-07-10 22:10 | External Medical Summary Rpt | CCD ---
Author Author , DEL[facility] Organization [facility] Address Unknown Phone Care Team Providers Care Sdc Teacher Name Role Phone AHMED ADN, AHMED ADN Unavailable Unavailable AHMED ADN, AHMED ADN Unavailable Unavailable BEINEKE LUBNA, BEINEKE Unavailable Unavailable LUBNA ZUNIGA ALL, ZUNIGA ALL Unavailable Unavailable SANCHEZ ROSA, SANCHEZ Unavailable Unavailable ROSA [facility] Unavailable [facility]available [facility], [facility] KEON RYA, Unavailable Unavailable KEON RYA KEON RYA, Unavailable Unavailable KEON RYA ZAFAR HOLLIS, Unavailable Unavailable ZAFAR HOLLIS FRYMAN EUG, FRYMAN Unavailable Unavailable EUG ZELDA DIA, ZELDA Unavailable Unavailable DIA [facility] Unavailable Unavailable INC, [facility], Unavailable Unavailable [facility] WAYNE, WAYNE Unavailable Unavailable WAYNE NAN, WAYNE Unavailable Unavailable NAN NIKITA TAU, NIKITA Unavailable Unavailable TAU [facility] Unavailable Unavailable [facility], [facility] YES[facility]IA JOSUÉ Unavailable Unavailable [facility], [facility] VARMA JM, VARMA Unavailable Unavailable JM VARMA JM, VARMA Unavailable Unavailable JM PATRICE JUNIOR, PATRICE Unavailable Unavailable JUNIOR PATRICEDANIELITO PACHECO, PATRICE Unavailable Unavailable JUNIOR Jim Maldonado MD, Unavailable Unavailable Jim Maldonado MD [facility] Unavailable [facility]available [facility], Unavailable Unavailable [facility] Unavailable Unavailable URGENT TREAT, [facility], Unavailable Unavailable PLLC, [...] REFLUX HEALTH DISEASE SOLUTIONS WITHOUT IN ESOPHAGITIS [id number] ARTICULAR 03-24-2017 [facility] [...] INC R609 EDEMA 06-19-2016 [facility] UNSPECIFIED PHYSICIANS, [facility] Z720 TOBACCO USE 06-19-2016 [facility] H6502 ACUTE 04-07-2016 VARMA JM SEROUS OTITIS MEDIA LEFT EAR H7012 CHRONIC 04-07-2016 [facility] JM MASTOIDITIS LEFT EAR K5901 SLOW 10-10-2015 [facility] CONSTIPATIO URGENT N TREAT Y11859 PAIN IN 10-10-2015 [facility] RIGHT LEG [facility] URGENT TREAT C36660 PAIN IN 10-10-2015 [facility] LEFT LEG [facility] URGENT TREAT T59404 EPIGASTRIC 10-10-2015 [facility] ABDOMINAL [facility] TENDERNESS URGENT TREAT R110 NAUSEA 10-10-2015 [facility] URGENT TREAT M6009 INFECTIVE 10-03-2015 [facility] MYOSITIS [facility] MULTIPLE URGENT SITES TREAT 486 PNEUMONIA, 06-14-2015 [facility] 80311 ASTHMA, 06-14-2015 [facility] UNSPECIFIED STATUS 81098 HYPOXEMIA 06-14-2015 [facility] V5869 LONG-TERM 06-13-2015 [facility] (CURRENT) PHYSICIANS USE OF GROUP OTHER MEDICATIONS 7856 ENLARGEMENT 06-12-2015 [facility]H [facility] 92340 SHORTNESS 06-11-2015 [facility] 7862 COUGH 06-11-2015 [facility] 96303 WHEEZING 06-09-2015 [facility] 81545 OTHER 06-09-2015 [facility]IFIC [facility]NORMAL [facility] FINDING OF LUNG FIELD 2724 OTHER AND 06-05-2015 [facility] UNSPECIFIED [facility] URGENT HYPERLIPIDE TREAT SIMBA 4610 ACUTE 06-05-2015 [facility] MAXILLARY [facility] SINUSITIS URGENT TREAT 67712 OTHER 06-05-2015 [facility] MALAISE AND [facility] FATIGUE URGENT TREAT 2689 UNSPECIFIED 02-21-2015 ON LICENSE OF [facility] VITAMIN D FAMILY DEFICIENCY [facility]INIC [facility] 61363 RESTLESS 02-21-2015 [facility] [place] SYNDROME URGENT TREAT 87662 ACUTE 02-21-2015 ON LICENSE OF [facility] SEROUS FAMILY OTITIS CLINIC [facility] MEDIA V700 ROUTINE 02-21-2015 ON LICENSE OF [facility] GENERAL FAMILY MEDICAL CLINIC [facility] EXAM@HEALTH CARE FACL V770 SCREENING 02-21-2015 ON LICENSE OF [facility] FOR THYROID FAMILY DISORDER CLINIC [facility] V7791 SCREENING 02-21-2015 ON LICENSE OF [facility] FOR LIPOID FAMILY DISORDERS CLINIC [facility] V780 SCREENING 02-21-2015 ON LICENSE OF [facility] FOR IRON FAMILY DEFICIENCY CLINIC [facility] ANEMIA 03052 UNSPECIFIED 12-17-2014 PATRICE PACHECO ACUTE NONSUPPURAT LISANDRA OTITIS MEDIA 462 ACUTE 12-17-2014 PATRICE PACHECO PHARYNGITIS 7905 OTHER 10-24-2014 [facility] ABNORMAL SERUM ENZYME LEVELS 79569 MIGRAINE 04-23-2014 PATRICE PACHECO UNSP W/O INTRACT W/O STATUS MIGRAINOSUS 7820 DISTURBANCE 03-13-2014 PATRICE PACHECO OF SKIN SENSATION 61743 OTHER 12-14-2013 PATRICE PACHECO CHRONIC PAIN 276.8 276.8 [facility]2013 [facility] 789.01 789.01 10-08-2013 [place] ABDOMINAL [facility] PAIN, RIGHT Hospital UPPER QUADRANT V14.0 V14.0 10-08-2013 Mohinder HX-PENICILL [facility] IN ALLERGY Hospital V14.8 V14.8 10-08-2013 [facility] ALLERGY NEC Hospital 6827 CELLULITIS 03-24-2013 [facility]OT EXCEPT TOES 27831 OTHER 03-24-2013 [facility] V4589 OTHER 03-24-2013 [facility] [facility] STATUS OTHER 80907 MIGRAINE 03-02-2013 PATRICE PACHECO W/AURA W/O INTRACT W/O STATUS MIGRNOSUS 61377 UNSPECIFIED 02-07-2013 PATRICE PACHECO OTALGIA 55554 MIGRAINE 01-11-2013 PATRICE PACHECO UNSP W/O INTRACTBL W/STATUS MIGRAINOSUS 61351 NAUSEA 01-11-2013 PATRICE PACHECO ALONE 7295 PAIN IN 11-15-2012 PATRICE PACHECO SOFT TISSUES OF LIMB 49628 OTHER 10-26-2012 [facility] LUNG NOT ASSOCIAT ELSEWHERE CLASSIFIED 33582 MIGRAINE 10-20-2012 PATRICE PACHECO W/O AURA W/O INTRACT W/O STAT MIGRNOSUS 30771 REGULAR 09-26-2012 [facility] ASTIGMATISM RYA 52866 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-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 44214 CERTAIN 06-23-2012 PATRICE PACHECO ADVERSE EFFECTS [facility] OTHER 6250 DYSPAREUNIA 05-17-2012 AHMED ADN 6253 DYSMENORRHE 05-17-2012 AHMED ADN A 30222 ABDOMINAL 05-17-2012 AHMED ADN PAIN, UNSPECIFIED SITE [...] 09 10 14 7 00 CA Ac WA 05 -0 -1 .0 00 RL ti [...] UG 0 S MG TA BL ET WA 59 06 07 55 10 00 CA [...] UG 0 S MG TA BL ET WA 00 03 04 55 10 00 CA [...] UG 5 S MG TA BL ET WA 00 12 01 11 6 00 CA [...] Procedure DOS Code Location Performer Comment GENERAL 96224 [facility]OS[facility] PANEL HOLDINGS HOLDINGS LIPID 49841 [facility] PANEL 7 JOSUÉ JOSUÉ [facility]INGS HOLDINGS COLLECTIO 67[address] [facility] [address]NE N VENOUS 7 HEALTH B[place] [address] LAB [facility] FOLIC 7 JOSÉU JOSUÉ ACID HOLDINGS HOLDINGS SERUM CYANOCOBA 04693 LAB [facility] YANG 7 JOSUÉ [...] EQUIP[place] [address] [facility] THYROXINE 6 [facility] TOTAL INC INC URNLS DIP 58339 [facility]ES 6 [facility] STICK/TAB INC INC LET REAGENT AUTO MICROSCOP Y BLOOD 18654 [facility] COUNT 6 [facility] COMPLETE INC INC AUTO&[place] [address] [facility] THYROID 6 [facility] STIMULATI INC INC NG HORMONE TSH COMPREHEN 00959 [facility] SIVE 6 [facility] MEM [...] YOUR YOUR SM VOL 5 [facility] P[facility] NEBULIZR DISPBL NEBULIZER E0570 [facility] WITH 5 HOME HOME [facility]ICAL MEDICAL R EQUIPME [facility]QU[facility]MO HOSPITAL 59893 [facility] 5 PHYSICIAN DIA DAY S GROUP MANAGEMEN T 30 MIN/< RADIOLOGI 61384 [facility] ALL C EXAM 5 MEDICAL CHEST 2 IMAGING VIEWS ASS FRONTAL&L ATERAL CT THORAX 45514 [facility] ALL 5 MEDICAL W/CONTRAS IMAGING T ASS MATERIAL SBSQ [address] 15 MINUTES RADIOLOGI 84261 [facility] C EXAM 5 MEDICAL LUBNA CHEST 2 IMAGING VIEWS ASS FRONTAL&L ATERAL SBSQ 45470 [facility] 5 PHYSICIAN DIA CARE/DAY S GROUP 15 MINUTES RADIOLOGI 32070 [facility] C EXAM 5 MEDICAL HOLLIS CHEST 2 IMAGING VIEWS ASS FRONTAL&L ATERAL INITIAL [address] 50 MINUTES COLLECTIO 61679 [facility] N VENOUS 5 DIAGNOSTI DIAGNOSTI BLOOD CS CS VENIPUNCT URE 25 18025 [facility] HYDROXY 5 DIAGNOSTI DIAGNOSTI INCLUDES CS CS FRACTIONS IF PERFORMED RADIOLOGI 71489 [facility] C EXAM 3 ROSA CHEST 2 RADIOLOGY VIEWS ASSOCIAT FRONTAL&L ATERAL DETERMINA 31158 [facility] TION 2 RYA RYA REFRACTIV E STATE OPHTH 81040 [facility] MEDICAL 2 RYA RYA XM&EVAL COMPRE NEW PT 1/> VST Encounters Encounter Start End Date Code Location Performer Type Date OFFICE 35812 [facility] 7 7 HEALTH T VISIT SOLUTIONS 15 IN MINUTES OFFICE 47510 [facility] 7 7 HEALTH T VISIT SOLUTIONS 25 IN MINUTES OFFICE 20482 [facility] 7 7 HEALTH T VISIT SOLUTIONS 25 IN MINUTES OFFICE 71454 [facility] 7 7 HEALTH T VISIT SOLUTIONS 15 IN MINUTES HOSPITAL [facility] - 6 6 [facility] OUT[facility]IEN INC T EMERGENCY 69224 ELA[facility] MALDONADO 6 6 PHYSICIAN DIA DEPARTMEN S, PLLC T VISIT HIGH/URGE NT SEVERITY EMERGENCY 83214 [facility] 6 6 [facility] DEPARTMEN INC T VISIT LOW/MODER SEVERITY OFFICE 44312 VARMA VARMA OUTPATIEN 6 6 [facility] JM T NEW 45 MINUTES OFFICE 69645 [facility] BL[facility] OUTPATIEN 6 6 [facility] T VISIT URGENT 25 TREAT MINUTES OFFICE 32994 [facility]ACK OUTPATIEN 6 6 [facility] T VISIT URGENT 15 TREAT MINUTES OFFICE 17482 [facility] OUTPATIEN 5 5 [facility] T VISIT URGENT 15 TREAT MINUTES EMERGENCY 93626 ELAINE BROWER DEPT 5 5 PHYSICIAN U LUBNA VISIT S, PLLC HIGH SEVERITY& THREAT FUNCJ OFFICE 15252 [facility] OUTPATIEN 5 5 [facility] T VISIT URGENT 25 TREAT MINUTES OFFICE 33044 [facility] OUTPATIEN 5 5 [facility] T NEW 20 URGENT MINUTES TREAT OFFICE 36691 COMMUNITY NIKITA OUTPATIEN 5 5 FAMILY TAU T VISIT CLINIC 15 PLLC MINUTES PERIODIC 46916 COMMUNITY NIKITA PREVENTIV 5 5 FAMILY TAU E MED EST CLINIC PATIENT PLLC 18-39 YRS OFFICE 49552 PATRICE PATRICE OUTPATIEN 5 5 JUNIOR JUNIOR T VISIT 25 MINUTES OFFICE 24885 PATRICE PATRICE OUTPATIEN 4 4 JUNIOR JUNIOR T VISIT 15 MINUTES OFFICE 10692 PATRICE PATRICE OUTPATIEN 4 4 JUNIOR JUNIOR T VISIT 15 MINUTES OFFICE 61681 PATRICE PATRICE OUTPATIEN 4 4 JUNIOR JUNIOR T VISIT 25 MINUTES Emergency MELISSA Maldonado MD (ER) 4 18:31 4 20:31 [facility] EMERGENCY 74300 NETTIE TORREZ 3 3 CO [facility] T VISIT MODERATE SEVERITY OFFICE 26350 PATRICE PATRICE OUTPATIEN 3 3 JUNIOR JUINOR T VISIT 15 MINUTES OFFICE 75752 PATRICE PATRICE OUTPATIEN 3 3 JUNIOR JUNIOR T VISIT 15 MINUTES OFFICE 09216 PATRICE PATRICE OUTPATIEN 3 3 JUNIOR JUNIOR T VISIT 15 MINUTES OFFICE 48720 PATRICE PATRICE OUTPATIEN 3 3 JUNIOR JUNIOR T VISIT 15 MINUTES OFFICE 10596 PATRICE PATRICE OUTPATIEN 3 3 JUNIOR JUNIOR T VISIT 25 MINUTES OFFICE 56565 PATRICE PATRICE OUTPATIEN 3 3 JUNIOR JUNIOR T VISIT 15 MINUTES OFFICE 84873 PATRICE PATRICE OUTPATIEN 3 3 JUNIOR JUNIOR T VISIT 15 MINUTES OFFICE 49566 PATRICE PATRICE OUTPATIEN 2 2 JUNIOR JUNIOR T VISIT 15 MINUTES OFFICE 06255 PATRICE PATRICE OUTPATIEN 2 2 JUNIOR JUNIOR T VISIT 15 MINUTES OFFICE 69188 PATRICE PATRICE OUTPATIEN 2 2 JUNIOR JUNIOR T VISIT 25 MINUTES OFFICE 62933 PATRICE PATRICE OUTPATIEN 2 2 JUNIOR JUNIOR T VISIT 15 MINUTES OFFICE 28516 PATRICE PATRICE OUTPATIEN 2 2 JUNIOR JUNIOR T VISIT 15 MINUTES OFFICE 75805 AHSTEPHY ALARCON AHMED ADN OUTPATIEN 2 2 T VISIT 15 MINUTES OFFICE 45366 AHMED ADN AHMED ADN OUTPATIEN 2 2 T VISIT 25 MINUTES
--- OUTSIDE RECORDS SUMMARY | 2017-07-10 22:12 | External Medical Summary Rpt | CCD ---
Author Author , DELMA CHINGSAVANA Address Unknown Phone [email or web address] Team Providers Care Supervisor Paper Machine Name Role Phone AHMED ADN, AHMED ADN Unavailable Unavailable AHMED ADN, AHMED ADN Unavailable Unavailable BEINEKE LUBNA, BEINEKE Unavailable Unavailable LUBNA ZUNIGA ALL, ZUNIGA ALL Unavailable Unavailable SANCHEZ ROSA, SANCHEZ Unavailable Unavailable ROSA [facility] KE[facility] RYA, Unavailable Unavailable KEON RYA KEON RYA, Unavailable Unavailable KEON RYA ZAFAR HOLLIS, Unavailable Unavailable ZAFAR HOLLIS FRYMAN EUG, FRYMAN Unavailable Unavailable EUG ZELDA DIA, ZELDA Unavailable Unavailable DIA [facility] Unavailable Unavailable INC, [facility], Unavailable Unavailable [facility] WAYNE, WAYNE Unavailable Unavailable WAYNE NAN, WAYNE Unavailable Unavailable NAN NIKITA TAU, NIKITA Unavailable Unavailable TAU [facility] Unavailable [facility]available [facility], [facility] Unavailable Unavailable [facility]INGS, [facility] VARMA JM, VARMA Unavailable Unavailable JM VARMA JM, VARMA Unavailable Unavailable JM PATRICE JUNIOR, PATRICE Unavailable Unavailable JUNIOR PATRICE JUNIOR, PATRICE Unavailable Unavailable [facility] Unavailable Unavailable [facility] Unavailable Unavailable [facility] Unavailable Unavailable URGENT TREAT, [facility], Unavailable Unavailable PLL[facility], [facility], Unavailable Unavailable [facility], Unavailable Unavailable [facility] SOKAN BAB, SOKAN BAB Unavailable Unavailable [facility] Unavailable Unavailable [facility], [facility] Unavailable Unavailable [facility], [facility] SOTINGEANU LUBNA, Unavailable Unavailable SOTINGEAAlcidesU LUBNA [facility] Unavailable Unavailable [facility], [facility], Unavailable Unavailable [...] [facility] WITHOUT IN ESOPHAGITIS [id number] ARTICULAR 03-24-2017 [facility] [...] INC R609 EDEMA 06-19-2016 [facility], [facility] Z720 TOBACCO USE 06-19-2016 [facility] H6502 ACUTE 04-07-2016 VARMA JM SEROUS OTITIS MEDIA LEFT EAR H7012 CHRONIC 04-07-2016 VARMA JM MASTOIDITIS LEFT EAR K5901 SLOW 10-10-2015 [facility] URGENT N TREAT Q36352 PAIN IN 10-10-2015 [facility] RIGHT LEG [facility] URGENT TREAT Q76901 PAIN IN 10-10-2015 [facility] LEFT LEG [facility] URGENT TREAT Q09689 EPIGASTRIC 10-10-2015 [facility] ABDOMINAL [facility] TENDERNESS URGENT TREAT R110 NAUSEA 10-10-2015 [facility] URGENT TREAT M6009 INFECTIVE 10-03-2015 [facility] MYOSITIS [facility] MULTIPLE URGENT SITES TREAT 486 PNEUMONIA, 06-14-2015 [facility] 29093 ASTHMA, 06-14-2015 [facility] UNSPECIFIED STATUS 17618 HYPOXEMIA 06-14-2015 [facility] V5869 LONG-TERM 06-13-2015 [facility] ([facility] PH[facility]ICIANS USE OF GROUP OTHER MEDICATIONS 7856 ENLARGEMENT 06-12-2015 [facility] LYMPH [facility]ICAL NODES [facility] 70454 SHORTNESS 06-11-2015 [facility] BREATH [facility] 7862 COUGH 06-11-2015 [facility] 22689 WHEEZING 06-09-2015 [facility] 45974 OTHER 06-09-2015 [facility] NONSPECIFIC MEDICAL ABNORMAL [facility] ASS FINDING OF LUNG FIELD 2724 OTHER AND 06-05-2015 [facility] URGENT HYPERLIPIDE TREAT SIMBA 4610 ACUTE 06-05-2015 [facility] MAXILLARY [facility] SINUSITIS URGENT TREAT 89177 OTHER 06-05-2015 [facility] MALAISE AND [facility] FATIGUE URGENT TREAT 2689 UNSPECIFIED 02-21-2015 [facility] VITAMIN D FAMILY DEFICIENCY CLINIC [facility] 94288 RESTLESS 02-21-2015 [facility] [place] SYNDROME URGENT TREAT 78713 ACUTE 02-21-2015 [facility] SEROUS FAMILY OTITIS CLINIC [facility] MEDIA V700 ROUTINE 02-21-2015 [facility] GENERAL FAMILY MEDICAL CLINIC [facility] EXAM@HEALTH CARE FACL V770 SCREENING 02-21-2015 [facility] FOR THYROID FAMILY DISORDER CLINIC [facility] V7791 SCREENING 02-21-2015 [facility] FOR LIPOID FAMILY DISORDERS CLINIC [facility] V780 SCREENING 02-21-2015 [facility] FOR IRON FAMILY DEFICIENCY CLINIC [facility] ANEMIA 02841 UNSPECIFIED 12-17-2014 [facility] ACUTE NONSUPPURAT LISANDRA OTITIS MEDIA 462 ACUTE 12-17-2014 [facility] PHARYNGITIS 7905 OTHER 10-24-2014 [facility] ABNORMAL SERUM ENZYME LEVELS 62777 MIGRAINE 04-23-2014 [facility] UNSP W/O INTRACT W/O STATUS MIGRAINOSUS 7820 DISTURBANCE 03-13-2014 [facility] OF SKIN SENSATION 29705 OTHER 12-14-2013 [facility] CHRONIC PAIN 6827 CELLULITIS 03-24-2013 [facility] EXCEPT TOES 35154 OTHER 03-24-2013 [facility] V4589 OTHER 03-24-2013 [facility] STATUS OTHER 34581 MIGRAINE 03-02-2013 [facility] W/AURA W/O INTRACT W/O STATUS MIGRNOSUS 62913 UNSPECIFIED 02-07-2013 [facility] OTALGIA 47782 MIGRAINE 01-11-2013 [facility] UNSP W/O INTRACTBL W/STATUS MIGRAINOSUS 58321 NAUSEA 01-11-2013 [facility] ALONE 7295 PAIN IN 11-15-2012 [facility] SOFT TISSUES OF LIMB 91083 OTHER 10-26-2012 [facility] DISEASES OF RADIOLOGY LUNG NOT ASSOCIAT ELSEWHERE CLASSIFIED 71351 MIGRAINE 10-20-2012 [facility] W/O AURA W/O INTRACT W/O STAT MIGRNOSUS 90373 REGULAR 09-26-2012 [facility] ASTIGMATISM RYA 08157 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-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 38627 CERTAIN 06-23-2012 [facility] ADVERSE EFFECTS NEC OTHER 6250 DYSPAREUNIA 05-17-2012 AHMED ADN 6253 DYSMENORRHE 05-17-2012 AHMED ADN A 09799 ABDOMINAL 05-17-2012 AHMED ADN PAIN, UNSPECIFIED SITE Medications Na ND Rx Da Fi Fi Am Da Di Ph RX Ph St me C No te ll ll ou ys ag ar # ys at rm s nt no ma ic us Or Da si cy ia de te s n re d BU 00 09 10 14 7 00 CA Ac CA 05 -0 -1 .0 00 RL ti [...] , TA IN BL C. ET GA 08 09 12 30 00 CA Ac [...] 17 [address] E UG 25 S MC G TA BL ET GA 69 07 08 12 30 00 CA Ac BA 09 -2 -2 0. 00 RL ti PE 70 4- 5- 00 00 IS ve NT 81 20 20 0 77 LE IN 11 17 [address] 80 UG 0 S MG TA BL ET LE 00 07 08 30 30 00 CA Ac VO 37 -2 -2 .0 00 RL ti TH 81 4- 5- 00 00 IS ve YR 80 20 20 77 LE OX 01 17 [address] Frandy MCKEON 25 S MC G TA BL ET GA 69 06 07 12 30 00 CA Ac BA 09 -2 -2 0. 00 RL ti PE 70 6- 8- 00 00 IS ve NT 81 20 20 0 77 LE IN 11 17 [address] 80 UG 0 S MG TA BL ET CA 59 06 07 55 10 00 CA Ac ED 74 -2 -2 .0 00 RL ti NI 60 6- 8- 00 00 IS ve SO 17 20 20 77 LE NE 21 17 17 69 5 0 96 UG MG S TA BL ET OM 60 06 07 [...] 73 17 17 69 N 0 98 HC UG L S 4 MG TA BL ET GA 68 05 [...] UG 0 S MG TA BL ET CA 00 03 04 55 10 00 CA Ac ED 05 -0 -1 .0 00 RL ti NI 44 9- 4- 00 00 IS ve SO 72 20 20 77 LE NE 83 17 17 [address] UG MG S TA BL ET PO 51 02 03 52 30 00 CA Ac LY 99 -2 -3 7. 00 RL ti ET 10 8- 1- 00 00 IS ve HY 45 20 20 0 77 LE LE 75 17 [address] MCKEON GL S YC OL 33 50 PO WD GA 68 02 03 12 30 00 CA Ac BA 46 -2 -3 0. 00 RL ti PE 20 8- 1- 00 00 IS ve NT 12 20 20 0 77 LE IN 60 17 17 11 5 05 60 UG 0 S MG TA BL ET GA 68 02 03 12 30 00 CA Ac BA 46 -1 -2 0. 00 RL ti PE 20 7- 4- 00 00 IS ve NT 12 20 20 0 76 LE IN 70 17 17 76 5 30 80 UG 0 S MG TA BL ET GA 68 01 02 12 30 00 CA Ac BA 46 -2 -2 0. 00 RL ti PE 20 0- 4- 00 00 IS ve NT 12 20 20 0 76 LE IN 70 17 17 76 5 30 80 UG 0 S MG TA BL ET GA 68 12 01 12 30 00 CA Ac BA 46 -2 -2 0. 00 RL ti PE 20 3- 7- 00 00 IS ve NT 12 20 20 0 76 LE IN 70 16 17 76 5 30 80 UG 0 S MG TA BL ET AM 65 12 01 20 10 00 CA Ac OX 86 -2 -2 .0 00 RL ti IC 20 1- 0- 00 00 IS ve IL 01 20 20 76 LE LI 50 16 17 [address] 87 UG 5 S MG TA BL ET CA 00 12 01 11 6 00 CA Ac OM 60 -2 -2 8. 00 RL ti ET 31 1- 0- 00 00 IS ve CRUM 58 20 20 0 76 LE ZI 65 16 [address] Melvin MCKEON M S SY RU P Procedures Procedure DOS Code Location Performer Comment GENERAL 67352 LAB [facility] 7 [facility] PANEL [facility] HOLDINGS LIPID 37444 LAB [facility] PANEL 7 [place] [address] LAB [facility] FOLIC 7 JOSUÉ JOSU[facility] ACID HOLDINGS HOLDINGS SERUM COLLECTIO 31882 [facility] Mcgrath VENOUS 7 HEALTH BLOOD SOLUTIONS VENIPUNCT IN URE CYANOCOBA 14937 LAB [facility] LAB [facility] YANG 7 JOSUÉ JOSUÉ VITAMIN HOLDINGS HOLDINGS B-12 O2 CONC 1 02-18-201 E1390 [facility] PORT 7 HOME HOME 85%/>02 MEDICAL MEDICAL CONC AT EQUIPME EQUIPME PRSC FLW RATE PRTBLE E0431 [facility] GASEOUS 7 HOME HOME O2 SYS MEDICAL MEDICAL RENT; EQUIPME EQUIPME FLWMTR HUMIDFR&M ASK PRTBLE E0431 [facility] GASEOUS 7 HOME [...] MEDICAL RENT; EQUIPME EQUIPME FLWMTR [place]FR&[place] [address] [facility] THYROID 6 [facility] STIMULATI INC INC NG HORMONE TSH URNLS DIP 94444 [facility] VINES 6 [facility] STICK/TAB INC INC LET REAGENT AUTO MICROSCOP Y BLOOD 28818 [facility]ES COUNT 6 [facility] COMPLETE INC INC AUTO&AUTO DIFRNTL WBC COMPREHEN 01710 [facility] SIVE 6 [facility] [place] [address] [facility] VINES THYROXINE 6 [facility] TOTAL INC INC O2 CONC 1 E1390 [facility] JEFF PORT [...] CONC AT EQUIPME EQUIPME PRSC FLW RATE ADMN SET A7003 YOUR YOUR VOL 5 PHARMACY [facility] PNEUMAT NEBULIZR DISPBL PRTBLE E0431 [facility] GASEOUS 5 HOME HOME O2 SYS MEDICAL MEDICAL RENT; EQUIPME EQUIPME FLWMTR HUMIDFR&M ASK NEBULIZER E0570 [facility] WITH 5 HOME HOME COMPRESSO MEDICAL MEDICAL R EQUIPME EQUIPME RADIOLOGI 18495 [facility] ZUNIG[facility] C EXAM 5 MEDICAL CHEST 2 IMAGING VIEWS ASS FRONTAL&L ATERAL HOSPITAL 54519 [facility] 5 [facility] DAY S GROUP MANAGEMEN T 30 MIN/< CT THORAX 66105 [facility] ALL 5 MEDICAL W/CONTRAS IMAGING T ASS MATERIAL SBSQ [address] 15 MINUTES RADIOLOGI 56514 [facility] EXAM 5 MEDICAL LUBNA CHEST 2 IMAGING VIEWS ASS FRONTAL&L ATERAL SBSQ 24964 [place] [address] [facility] CARE/DAY S GROUP 15 MINUTES INITIAL [address] 50 MINUTES RADIOLOGI 10568 [facility] ZAFAR C EXAM 5 MEDICAL HOLLIS CHEST 2 IMAGING VIEWS ASS FRONTAL&L ATERAL COLLECTIO 47575 [facility] N VENOUS 5 DIAGNOSTI DIAGNOSTI BLOOD CS CS VENIPUNCT URE 25 77262 [facility] HYDROXY 5 DIAGNOSTI DIAGNOSTI INCLUDES CS CS FRACTIONS IF PERFORMED RADIOLOGI 90132 [facility] C EXAM 3 ROSA CHEST 2 RADIOLOGY VIEWS ASSOCIAT FRONTAL&L ATERAL DETERMINA 98063 [facility] TION 2 RYA RYA REFRACTIV E STATE OPHTH 40033 [facility] MEDICAL 2 RYA RYA XM&EVAL COMPRE NEW PT 1/> VST Encounters Encounter Start End Date Code Location Performer Type Date OFFICE [address] [facility] OUTPATIEN 7 7 HEALTH T VISIT SOLUTIONS 15 IN MINUTES OFFICE 30751 [facility] T VISIT SOLUTIONS 25 IN MINUTES OFFICE 15229 [facility] OUTPATIEN 7 7 HEALTH T VISIT SOLUTIONS 25 IN MINUTES OFFICE 37859 [facility] OUTPATI[facility] 7 7 HEALTH T VISIT SOLUTIONS 15 IN MINUTES EMERGENCY 13458 [facility] 6 6 [facility] DEPARTMEN INC T VISIT LOW/MODER SEVERITY HOSPITAL [facility] - 6 6 [facility] OUTPATIEN INC T EMERGENCY 20236 [facility] NDIAYE 6 6 PHYSICIAN DIA DEPARTMEN S, PLLC T VISIT HIGH/URGE NT SEVERITY OFFICE 51800 KOJO VARMA OUTPATIEN 6 6 [facility] JM T NEW 45 MINUTES OFFICE 75382 [facility]PATIEN 6 6 [facility] 25 TREAT MINUTES OFFICE 70799 [facility] OUTPATIEN 6 6 [facility] 15 TREAT MINUTES OFFICE 90213 [facility] OUTPATIEN 5 5 [facility] 15 TREAT MINUTES EMERGENCY 41243 [facility] BROWER DEPT 5 5 PHYSICIAN U LUBNA VISIT S, [facility] HIGH SEVERITY& THREAT FUNCJ OFFICE 23985 [facility] OUTPATIEN 5 5 [facility] 25 TREAT MINUTES OFFICE 02383 [facility] BLACK OUTPATIEN 5 5 [facility] 20 URGENT MINUTES TREAT PERIODIC 03382 COMMUNITY NIKITA PREVENTIV 5 5 FAMILY TAU E MED EST CLINIC PATIENT PLLC 18-39 YRS OFFICE 71444 COMMUNITY NIKITA OUTPATIEN 5 5 FAMILY TAU T VISIT CLINIC 15 PLLC MINUTES OFFICE 56956 [facility] IBRAHIM OUTPATIEN 5 5 JUNIOR JUNIOR T VISIT 25 MINUTES OFFICE 17471 PATRICE IBRAHIM OUTPATIEN 4 4 JUNIOR JUNIOR T VISIT 15 MINUTES OFFICE 89802 PATRICE PATRICE OUTPATIEN 4 4 JUNIOR JUNIOR T VISIT 15 MINUTES OFFICE 75417 PATRICE PATRICE OUTPATIEN 4 4 JUNIOR JUNIOR T VISIT 25 MINUTES EMERGENCY 39124 [facility] BUCHANANAlcides TORREZ 3 3 [facility] T VISIT MODERATE SEVERITY OFFICE 97200 PATRICE PATRICE OUTPATIEN 3 3 JUNIOR JUNIOR T VISIT 15 MINUTES OFFICE 60602 PATRICE PATRICE OUTPATIEN 3 3 JUNIOR JUNIOR T VISIT 15 MINUTES OFFICE 30765 PATRICE PATRICE OUTPATIEN 3 3 JUNIOR JUNIOR T VISIT 15 MINUTES OFFICE 42776 PATRICE PATRICE OUTPATIEN 3 3 JUNIOR JUNIOR T VISIT 15 MINUTES OFFICE 19066 PATRICE PATRICE OUTPATIEN 3 3 JUNIOR JUNIOR T VISIT 25 MINUTES OFFICE 01060 PATRICE PATRICE OUTPATIEN 3 3 JUNIOR JUNIOR T VISIT 15 MINUTES OFFICE 10075 PATRICE PATRICE OUTPATIEN 3 3 JUNIOR JUNIOR T VISIT 15 MINUTES OFFICE 97866 PATRICE PATRICE OUTPATIEN 2 2 JUNIOR JUNIOR T VISIT 15 MINUTES OFFICE 51715 PATRICE PATRICE OUTPATIEN 2 2 JUNIOR JUNIOR T VISIT 15 MINUTES OFFICE 87178 PATRICE PATRICE OUTPATIEN 2 2 JUNIOR JUNIOR T VISIT 25 MINUTES OFFICE 25723 PATRICE PATRICE OUTPATIEN 2 2 JUNIOR JUNIOR T VISIT 15 MINUTES OFFICE 67042 PATRICE PATRICE OUTPATIEN 2 2 JUNIOR JUNIOR T VISIT 15 MINUTES OFFICE 94346 MARGARET ALARCON OUTPATIEN 2 2 T VISIT 15 MINUTES OFFICE 84718 MARGARET ALARCON OUTPATITHOMPSON 2 2 T VISIT 25 MINUTES
--- OUTSIDE RECORDS SUMMARY | 2017-07-10 22:12 | External Medical Summary Rpt | CCD ---
Author Author , DELMA CHINGSAVANA Address Unknown Phone [email or web address] Team [email or web address] Care Paratransit Operator Name Role Phone AHMED ADN, AHMED ADN Unavailable Unavailable AHMED ADN, AHMED ADN Unavailable Unavailable BEINEKE LUBNA, BEINEKE Unavailable Unavailable LUBNA ZUNIGA ALL, ZUNIGA ALL Unavailable Unavailable SANCHEZ ROSA, SANCHEZ Unavailable Unavailable ROSA [facility] Un[facility] KEON RYA, Unavailable Unavailable KEON RYA KOEN RYA, Unavailable Unavailable KEON RYA ZAFAR HOLLIS, Unavailable Unavailable ZAFAR HOLLIS FRYMAN EUG, FRYMAN Unavailable Unavailable EUG ZELDA DIA, ZELDA Unavailable Unavailable DIA [facility] Unavailable Unavailable INC, [facility], Unavailable Unavailable [facility] WAYNE, WAYNE Unavailable Unavailable WAYNE NAN, WAYNE Unavailable Unavailable NAN NIKITA TAU, NIKITA Unavailable Unavailable TAU [facility]available [facility], [facility] Unavailable Unavailable [facility], [facility] VARMA JM, VARMA Unavailable Unavailable JM VARMA JM, VARMA Unavailable Unavailable JM PATRICE JUNIOR, PATRICE Unavailable Unavailable JUNIOR PATRICE JUNIOR, PATRICE Unavailable Unavailable [facility] Unavailable Unavailable [facility], Unavailable Unavailable [facility] Unavailable Unavailable URGENT TREAT, [facility], Unavailable Unavailable PLL[facility], [facility], Unavailable Unavailable [facility], Unavailable Unavailable [facility] SOKAN BAB, SOKAN BAB Unavailable Unavailable [facility] Unavailable Unavailable [facility], [facility] Unavailable Unavailable [facility], [facility] SOTINGEANU LUBNA, Unavailable Unavailable SOTINGEAAlcidesU LUBNA [facility] Unavailable Unavailable [facility], [email or web address], Unavailable Unavailable [...] [facility] WITHOUT IN ESOPHAGITIS [id number] ARTICULAR 03-24-2017 [facility] [...] INC R609 EDEMA 06-19-2016 [facility], [facility] Z720 TOBACCO USE 06-19-2016 [facility] H6502 ACUTE 04-07-2016 VARMA JM SEROUS OTITIS MEDIA LEFT EAR H7012 CHRONIC 04-07-2016 VARMA MJ MASTOIDITIS LEFT EAR K5901 SLOW 10-10-2015 [facility] N TREAT [id number] PAIN IN 10-10-2015 [facility] RIGHT LEG [facility] URGENT TRE[facility] E53547 PAIN IN 10-10-2015 [facility] LEFT LEG [facility] URGENT TREAT J31006 EPIGASTRIC 10-10-2015 [facility] ABDOMINAL [facility] TENDERNESS URGENT TREAT R110 NAUSEA 10-10-2015 [facility] URGENT TREAT M6009 INFECTIVE 10-03-2015 [facility] MYOSITIS [facility] MULTIPLE URGENT SITES TREAT 486 PNEUMONIA, 06-14-2015 [facility] 74143 ASTHMA, 06-14-2015 [facility] UNSPECIFIED STATUS 07125 HYPOXEMIA 06-14-2015 [facility] V5869 LONG-TERM 06-13-2015 [facility] USE OF GROUP OTHER MEDICATIONS 7856 ENLARGEMENT 06-12-2015 [facility] LYMPH [facility]ICAL NODES [facility] 09057 SHORTNESS 06-11-2015 [facility] BREATH [facility]ICAL [facility] 7862 COUGH 06-11-2015 [facility] 41795 WHEEZING 06-09-2015 [facility] 81459 OTHER 06-09-2015 [facility] NONSPECIFIC MEDICAL ABNORMAL [facility] ASS FINDING OF LUNG FIELD 2724 OTHER AND 06-05-2015 [facility] URGENT HYPERLIPIDE TREAT SIMBA 4610 ACUTE 06-05-2015 [facility] MAXILLARY [facility] SINUSITIS URGENT TREAT 72980 OTHER 06-05-2015 [facility] MALAISE AND [facility] FATIGUE URGENT TREAT 2689 UNSPECIFIED 02-21-2015 [facility] VITAMIN D FAMILY DEFICIENCY CLINIC [facility] 68106 RESTLESS 02-21-2015 [facility] [place] SYNDROME URGENT TREAT 44870 ACUTE 02-21-2015 [facility] SEROUS FAMILY OTITIS CLINIC [facility] MEDIA V700 ROUTINE 02-21-2015 [facility] GENERAL [facility] EXAM@HEALTH CARE FACL V770 SCREENING 02-21-2015 [facility] FOR THYROID FAMILY DISORDER CLINIC [facility] V7791 SCREENING 02-21-2015 [facility] FOR LIPOID FAMILY DISORDERS CLINIC [facility] V780 SCREENING 02-21-2015 [facility] FOR IRON FAMILY DEFICIENCY CLINIC [facility] ANEMIA 49836 UNSPECIFIED 12-17-2014 [facility] ACUTE NONSUPPURAT LISANDRA OTITIS MEDIA 462 ACUTE 12-17-2014 [facility] PHARYNGITIS 7905 OTHER 10-24-2014 [facility] ABNORMAL SERUM ENZYME LEVELS 29679 MIGRAINE 04-23-2014 [facility] UNSP W/O INTRACT W/O STATUS MIGRAINOSUS 7820 DISTURBANCE 03-13-2014 [facility] OF SKIN SENSATION 54223 OTHER 12-14-2013 [facility] CHRONIC PAIN 6827 CELLULITIS 03-24-2013 [facility] EXCEPT TOES 72570 OTHER 03-24-2013 [facility] V4589 OTHER 03-24-2013 [facility] STATUS OTHER 67735 MIGRAINE 03-02-2013 [facility] W/AURA W/O INTRACT W/O STATUS MIGRNOSUS 02942 UNSPECIFIED 02-07-2013 [facility] OTALGIA 97652 MIGRAINE 01-11-2013 [facility] UNSP W/O INTRACTBL W/STATUS MIGRAINOSUS 16996 NAUSEA 01-11-2013 [facility] ALONE 7295 PAIN IN 11-15-2012 [facility] SOFT TISSUES OF LIMB 34174 OTHER 10-26-2012 [place] [facility] LUNG NOT ASSOCIAT ELSEWHERE CLASSIFIED 08689 MIGRAINE 10-20-2012 [facility] W/O AURA W/O INTRACT W/O STAT MIGRNOSUS 85095 REGULAR 09-26-2012 [facility] ASTIGMAT[facility] RYA 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 00 RL ti ET 31 1- 0- 00 00 IS ve CRUM 58 20 20 0 76 LE ZI 65 16 [address] Melvin MCKEON M S SY RU P Procedures Procedure DOS Code Location Performer Comment GENERAL 26225 LAB [facility] 7 [facility] PANEL [facility] LIPID 42953 LAB [facility] PANEL 7 [place] [address] LAB [facility] FOLIC 7 JOSUÉ JOSUÉ ACID [facility]INGS HOLDINGS SERUM COLLECTIO 96420 [facility] Mcgrath VENOUS 7 HEALTH BLOOD SOLUTIONS VENIPUNCT IN URE CYANOCOBA 98884 LAB [facility] LAB YESENIA YANG 7 JOSUÉ [...] EQUIPME EQUIPME FLWMTR [place] [address] [facility] THYROID 6 [facility] STIMULATI INC INC NG HORMONE TSH URNLS DIP 25462 [facility]ES 6 [facility] STICK/TAB INC INC LET REAGENT AUTO MICROSCOP Y BLOOD 46348 [facility] COUNT 6 [facility] COMPLETE INC INC AUTO&AUTO DIFRNTL WBC COMPREHEN 95750 [facility] SIVE 6 [facility] [place] [address] [facility] THYROXINE 6 MEM HOS[facility] MEM [...] A7003 YOUR YOUR VOL 5 PHARMACY [facility] PNEUMAT NEBULIZR DISPBL PRTBLE E0431 [facility] GASEOUS 5 HOME HOME O2 SYS MEDICAL MEDICAL RENT; EQUIPME EQUIPME FLWMTR HUMIDFR&M ASK NEBULIZER E0570 [facility] WITH 5 HOME HOME COMPRESSO MEDICAL MEDICAL R EQUIPME EQUIPME RADIOLOGI 63528 [facility] ZUNIGA ALL C EXAM 5 MEDICAL CHEST 2 IMAGING VIEWS ASS FRONTAL&L ATERAL HOSPITAL 68733 [facility] 5 PHYSICIAN [facility] DAY S GROUP MANAGEMEN T 30 MIN/< CT THORAX 60737 [facility] ALL 5 MEDICAL W/CONTRAS IMAGING T ASS MATERIAL SBSQ [address] 15 MINUTES RADIOLOGI 33051 [facility] [place] EXAM 5 MEDICAL LUBNA CHEST 2 IMAGING VIEWS ASS FRONTAL&L ATERAL SBSQ [address]14 [place] [address] PHYSICIAN [facility] CARE/DAY S GROUP 15 MINUTES INITIAL [address] 50 MINUTES RADIOLOGI 56085 [facility] ZAFAR C EXAM 5 MEDICAL [place] CHEST 2 IMAGING VIEWS ASS FRONTAL&L ATERAL COLLECTIO 92889 [facility] N VENOUS 5 DIAGNOSTI DIAGNOSTI BLOOD CS CS VENIPUNCT URE 25 04047 [facility] HYDROXY 5 DIAGNOSTI DIAGNOSTI INCLUDES CS CS FRACTIONS IF PERFORMED RADIOLOGI 40652 [facility] C EXAM 3 ROSA CHEST 2 RADIOLOGY VIEWS ASSOCIAT FRONTAL&L ATERAL DETERMINA 07555 [facility] TION 2 RYA RYA REFRACTIV E STATE OPHTH 48572 [facility] MEDICAL 2 RYA RYA XM&EVAL COMPRE NEW PT 1/> VST Encounters Encounter Start End Date Code Location Performer Type Date OFFICE [address] [facility] 7 7 HEALTH T VISIT SOLUTIONS 15 IN MINUTES [facility]ICE 11750 [facility]ISIT SOLUTIONS 25 IN MINUTES OFFICE 10765 [facility] OUTPATIEN 7 7 HEALTH T VISIT SOLUTIONS 25 IN MINUTES OFFICE 68547 [facility] OUT[facility] 7 7 HEALTH T VISIT SOLUTIONS 15 IN MINUTES EMERGENCY 07571 [facility] 6 6 [facility] DEPARTMEN INC T VISIT LOW/MODER SEVERITY HOSPITAL MOHNIDER - 6 6 [facility] OUTPATIEN INC T EMERGENCY 15972 [facility] NDIAYE 6 6 PHYSICIAN DIA DEPARTMEN S, PLLC T VISIT HIGH/URGE NT SEVERITY OFFICE 15962 [facility] VARMA OUTPATIEN 6 6 [facility] T NEW 45 MINUTES OFFICE 41934 [facility] BLACK OUTPATIEN 6 6 [facility] T VISIT URGENT 25 TREAT MINUTES OFFICE 65991 [facility] BLACK OUTPATIEN 6 6 [facility] T VISIT URGENT 15 TREAT MINUTES OFFICE 87539 [facility]ACK OUTPATIEN 5 5 [facility] T VISIT URGENT 15 TREAT MINUTES EMERGENCY 66477 [facility] BROWER DEPT 5 5 PHYSICIAN U LUBNA VISIT S, [facility] HIGH SEVERITY& THREAT FUNCJ OFFICE 70869 [facility] BLACK OUTPATIEN 5 5 [facility] T VISIT URGENT 25 TREAT MINUTES OFFICE 46532 [facility] BLACK OUTPATIEN 5 5 [facility] NEW 20 URGENT MINUTES TREAT PERIODIC 73378 COMMUN[facility] NIKITA PREVENTIV 5 5 FAMILY TAU E MED EST CLINIC PATIENT PLLC 18-39 YRS OFFICE 34341 COMMUNITY NIKITA OUTPATIEN 5 5 FAMILY TAU T VISIT CLINIC 15 PLLC MINUTES OFFICE 27673 [facility] IBRAHIM OUTPATIEN 5 5 JUNIOR JUNIOR T VISIT 25 MINUTES OFFICE 80306 [facility] IBRAHIM OUTPATIEN 4 4 JUNIOR JUNIOR T VISIT 15 MINUTES OFFICE 94398 PATRICE PATRICE OUTPATIEN 4 4 JUNIOR JUNIOR T VISIT 15 MINUTES OFFICE 90615 PATRICE PATRICE OUTPATIEN 4 4 JUNIOR JUNIOR T VISIT 25 MINUTES EMERGENCY 46182 [facility] BUCHANANAlcides TORREZ 3 3 [facility] T VISIT MODERATE SEVERITY OFFICE 39543 PATRICE PATRICE OUTPATIEN 3 3 JUNIOR JUNIOR T VISIT 15 MINUTES OFFICE 63256 PATRICE PATRICE OUTPATIEN 3 3 JUNIOR JUNIOR T VISIT 15 MINUTES OFFICE 67822 PATRICE PATRICE OUTPATIEN 3 3 JUNIOR JUNIOR T VISIT 15 MINUTES OFFICE 57987 PATRICE PATRICE OUTPATIEN 3 3 JUNIOR JUNIOR T VISIT 15 MINUTES OFFICE 75087 PATRICE PATRICE OUTPATIEN 3 3 JUNIOR JUNIOR T VISIT 25 MINUTES OFFICE 05319 PATRICE PATRICE OUTPATIEN 3 3 JUNIOR JUNIOR T VISIT 15 MINUTES OFFICE 82649 PATRICE PATRICE OUTPATIEN 3 3 JUNIOR JUNIOR T VISIT 15 MINUTES OFFICE 93808 PATRICE PATRICE OUTPATIEN 2 2 JUNIOR JUNIOR T VISIT 15 MINUTES OFFICE 18696 PATRICE PATRICE OUTPATIEN 2 2 JUNIOR JUNIOR T VISIT 15 MINUTES OFFICE 47661 PATRICE PATRICE OUTPATIEN 2 2 JUNIOR JUNIOR T VISIT 25 MINUTES OFFICE 24486 PATRICE PATRICE OUTPATIEN 2 2 JUNIOR JUNIOR T VISIT 15 MINUTES OFFICE 22093 PATRICE PATRICE OUTPATIEN 2 2 JUNIOR JUNIOR T VISIT 15 MINUTES OFFICE 53358 MARGARET ALARCON OUTPATIEN 2 2 T VISIT 15 MINUTES OFFICE 75457 MARGARET ALARCON OUTPATITHMOPSON 2 2 T VISIT 25 MINUTES
--- OUTSIDE RECORDS SUMMARY | 2017-07-10 22:13 | External Medical Summary Rpt | CCD ---
Demographics Preferred Language Kinyarwanda Marital Status Unknown Buddhist Affiliation Unknown Race Unknown Ethnic Group Unknown Author Author , DELMA NGUYỄN Address Unknown Phone [email or web address] Immunization No patient found.
--- OUTSIDE RECORDS SUMMARY | 2017-07-10 22:13 | External Medical Summary Rpt | CCD ---
Demographics Preferred Language Syriac Marital Status Unknown Yarsani Affiliation Unknown Race Unknown Ethnic Group Unknown Author Author , DELMA NGUYỄN Address Unknown Phone [email or web address] Immunization No patient found.
== END 2017-07-09 22:29 | disposition home or self-care (01) ==
LOC: ER 19:29
PROVIDERS: Emergency Medicine
DX: R10.11 Right upper quadrant pain (principal); K59.00 Constipation, unspecified; F17.210 Nicotine dependence, cigarettes, uncomplicated; Z88.0 Allergy status to penicillin; Z88.1 Allergy status to other antibiotic agents